=== PATIENT | female | born 1940 | race Caucasian/White ===

== ENCOUNTER → 2016-10-13 | Outpatient (CLI) | payer MEDICARE, BC | LOC: LAB 10:40 | DX: E11.9 Type 2 diabetes mellitus without complications (principal); I10 Essential (primary) hypertension ==

== ENCOUNTER → 2017-04-19 | Outpatient (CLI) | payer MEDICARE, BC ==
[2017-04-19 13:29] LABS: BASO # 0.1 (0.02-0.10); EOS # 0.3 (0.04-0.40); HEMATOCRIT 40.5 % (37.0-47.0); HEMOGLOBIN 13.5 g/dL (12.5-16.0); MEAN CELL VOLUME 89 fl (78-100); MEAN CORPUSCULAR HEMOGLOBIN 30 pg (27-31); MEAN CORPUSCULAR HGB CONC 33 g/dL (33-37); MEAN PLATELET VOLUME 10.8 fl (7.4-10.4); MONO # 0.7 (0.20-0.80); NEU # 4.9 (1.40-6.50); PLATELET COUNT 249 K/mm3 (130-400); RED BLOOD COUNT 4.54 M/mm3 (4.10-5.30); RED CELL DISTRIBUTION WIDTH 12.6 % (11.5-14.5)
[2017-04-19 14:48] LABS: ALBUMIN 4.1 g/dL (3.5-5.0); BUN/CREATININE RATIO 20.5 (6.0-26.0); CALCIUM 10.2 mg/dL (8.4-10.2); POTASSIUM 3.9 mmol/L (3.6-5.0); TOTAL BILIRUBIN 0.5 mg/dL (0.2-1.3); TOTAL PROTEIN 7.1 g/dL (6.3-8.2)
== END ==
LOC: LAB 11:02
PROVIDERS: Nurse Practitioner Family
DX: I10 Essential (primary) hypertension (principal); E11.9 Type 2 diabetes mellitus without complications; E78.2 Mixed hyperlipidemia

== ENCOUNTER → 2017-04-25 | Outpatient (CLI) | payer MEDICARE, BC | LOC: RAD 12:00 → VAS 16:20 | DX: R01.1 Cardiac murmur, unspecified (principal); I10 Essential (primary) hypertension ==

== ENCOUNTER → 2017-04-26 | Outpatient (CLI) | payer MEDICARE, BC | LOC: MAMMO 09:50 | DX: Z12.31 Encounter for screening mammogram for malignant neoplasm of breast (principal) | CPT/HCPCS: G0202 ==

== ENCOUNTER → 2017-05-01 | Day surgery (SDC) | payer MEDICARE, BC | LOC: MSO 11:02 | DX: K22.70 Barrett's esophagus without dysplasia (principal); K21.9 Gastro-esophageal reflux disease without esophagitis; K20.9 Esophagitis, unspecified; I10 Essential (primary) hypertension; E78.00 Pure hypercholesterolemia, unspecified; F17.210 Nicotine dependence, cigarettes, uncomplicated; H91.93 Unspecified hearing loss, bilateral | CPT/HCPCS: 00740; A4649; J7030 ==

== ENCOUNTER → 2017-10-17 | Outpatient (CLI) | payer MEDICARE, BC ==
[2017-07-29 10:51] VITALS: BP 137/63
[~2017-10-17] MED LIST: ACETAMINOPHEN-O1 TAB PO; CEFDINIR300 MG PO; COMBIVENT RESPI1 SPR IH; D-1000 185 MG-11 TAB; LOSARTAN POTASS50 M1 PO; NORVASC 5MG5 MG/TAB PO; PREVACID15 M1 PO; SIMVASTATIN20 M1 PO; VITAMIN C PURE500 M1
== END ==
LOC: LAB 11:49
DX: E11.9 Type 2 diabetes mellitus without complications (principal)

== ENCOUNTER 2017-11-21 13:00 | Outpatient (RCR) | payer MEDICARE, BC ==
[2017-07-29 10:51] VITALS: BP 137/63
== END 2017-11-21 13:30 | disposition home or self-care (01) ==
LOC: PT 13:00
DX: S29.012D Strain of muscle and tendon of back wall of thorax, subsequent encounter (principal)

== ENCOUNTER → 2018-03-28 | Outpatient (CLI) | payer MEDICARE, BC ==
[2017-07-29 10:51] VITALS: BP 137/63
== END ==
LOC: LAB 09:46
DX: R30.0 Dysuria (principal); R35.0 Frequency of micturition; K04.7 Periapical abscess without sinus; K08.89 Other specified disorders of teeth and supporting structures

== ENCOUNTER → 2018-05-14 | Outpatient (CLI) | payer MEDICARE, BC ==
[2017-07-29 10:51] VITALS: BP 137/63
[2018-05-14 10:26] LABS: BASO # 0.1 (0.02-0.10); EOS # 0.3 (0.04-0.40); EOS % 4.7 % (1.0-5.0); HEMATOCRIT 39.6 % (37.0-47.0); HEMOGLOBIN 13.1 g/dL (12.5-16.0); LYMPH# 1.7 (1.50-4.00); MEAN CELL VOLUME 90 fl (78-100); MEAN CORPUSCULAR HEMOGLOBIN 30 pg (27-31); MEAN CORPUSCULAR HGB CONC 33 g/dL (33-37); MEAN PLATELET VOLUME 10.1 fl (7.4-10.4); MONO # 0.7 (0.20-0.80); NEU # 3.5 (1.40-6.50); PLATELET COUNT 256 K/mm3 (130-400); RED CELL DISTRIBUTION WIDTH 12.2 % (11.5-14.5); WHITE BLOOD COUNT 6.4 K/mm3 (4.8-10.8)
[2018-05-14 10:41] LABS: ALBUMIN 4.6 g/dL (3.5-5.0); CALCIUM 9.7 mg/dL (8.4-10.2); POTASSIUM 4.1 mmol/L (3.6-5.0); TOTAL BILIRUBIN 0.7 mg/dL (0.2-1.3); TOTAL PROTEIN 7.2 g/dL (6.3-8.2)
== END ==
LOC: LAB 09:53
PROVIDERS: Physician Assistant
DX: Z23 Encounter for immunization (principal); Z00.00 Encounter for general adult medical examination without abnormal findings; E11.9 Type 2 diabetes mellitus without complications; R53.83 Other fatigue; K21.9 Gastro-esophageal reflux disease without esophagitis; E78.5 Hyperlipidemia, unspecified; K22.70 Barrett's esophagus without dysplasia; I10 Essential (primary) hypertension

== ENCOUNTER → 2018-05-14 | Outpatient (CLI) | payer MEDICARE, BC ==
[2017-07-29 10:51] VITALS: BP 137/63
== END ==
LOC: MAMMO 09:52
DX: Z12.31 Encounter for screening mammogram for malignant neoplasm of breast (principal); Z00.00 Encounter for general adult medical examination without abnormal findings; Z23 Encounter for immunization; R53.83 Other fatigue; K21.9 Gastro-esophageal reflux disease without esophagitis; E78.5 Hyperlipidemia, unspecified; K22.70 Barrett's esophagus without dysplasia; I10 Essential (primary) hypertension; E11.9 Type 2 diabetes mellitus without complications

== ENCOUNTER → 2018-09-24 | Outpatient (CLI) | payer MEDICARE, BC ==
[2017-07-29 10:51] VITALS: BP 137/63
== END ==
LOC: RAD 10:50
DX: M19.071 Primary osteoarthritis, right ankle and foot (principal); M79.89 Other specified soft tissue disorders; I10 Essential (primary) hypertension; J30.2 Other seasonal allergic rhinitis; J30.9 Allergic rhinitis, unspecified

== ENCOUNTER → 2019-05-02 | Outpatient (CLI) | payer MEDICARE, BC ==
[2017-07-29 10:51] VITALS: BP 137/63
[2019-05-02 11:28] LABS: BASO # 0.1 (0.02-0.10); EOS # 0.2 (0.04-0.40); EOS % 3.1 % (1.0-5.0); HEMATOCRIT 41.2 % (37.0-47.0); HEMOGLOBIN 13.3 g/dL (12.5-16.0); LYMPH# 1.9 (1.50-4.00); MEAN CELL VOLUME 89 fl (78-100); MEAN CORPUSCULAR HEMOGLOBIN 29 pg (27-31); MEAN CORPUSCULAR HGB CONC 32 g/dL (33-37); MEAN PLATELET VOLUME 10.7 fl (7.4-10.4); MONO # 0.8 (0.20-0.80); NEU # 4.1 (1.40-6.50); PLATELET COUNT 259 K/mm3 (130-400); RED BLOOD COUNT 4.65 M/mm3 (4.10-5.30); RED CELL DISTRIBUTION WIDTH 12.6 % (11.5-14.5); WHITE BLOOD COUNT 7.2 K/mm3 (4.8-10.8)
[2019-05-02 11:30] LABS: ALBUMIN 4.4 g/dL (3.4-4.8); POTASSIUM 4.2 mmol/L (3.5-5.1)
[2019-05-02 11:33] LABS: TOTAL PROTEIN 7.2 g/dL (6.2-8.1)
[2019-05-02 11:34] LABS: TOTAL BILIRUBIN 0.5 mg/dL (0.2-1.2)
== END ==
LOC: LAB 10:53
PROVIDERS: Physician Assistant
DX: Z00.00 Encounter for general adult medical examination without abnormal findings (principal); Z12.39 Encounter for other screening for malignant neoplasm of breast; Z13.220 Encounter for screening for lipoid disorders; Z13.29 Encounter for screening for other suspected endocrine disorder; E11.9 Type 2 diabetes mellitus without complications; K21.9 Gastro-esophageal reflux disease without esophagitis; I10 Essential (primary) hypertension; R25.2 Cramp and spasm; Z72.0 Tobacco use

== ENCOUNTER → 2019-05-28 | Outpatient (CLI) | payer MEDICARE, BC ==
[2017-07-29 10:51] VITALS: BP 137/63
== END ==
LOC: MAMMO 10:38
DX: Z00.00 Encounter for general adult medical examination without abnormal findings (principal); Z12.31 Encounter for screening mammogram for malignant neoplasm of breast; Z13.220 Encounter for screening for lipoid disorders; Z13.29 Encounter for screening for other suspected endocrine disorder; Z72.0 Tobacco use; K21.9 Gastro-esophageal reflux disease without esophagitis; E11.9 Type 2 diabetes mellitus without complications; I10 Essential (primary) hypertension; R25.2 Cramp and spasm

== ENCOUNTER → 2019-07-31 | Day surgery (SDC) | payer MEDICARE, BC ==
[2017-07-29 10:51] VITALS: BP 137/63
== END ==
LOC: MSO 07-03 08:22
DX: K22.70 Barrett's esophagus without dysplasia (principal); K21.9 Gastro-esophageal reflux disease without esophagitis; K92.1 Melena; K29.70 Gastritis, unspecified, without bleeding; F17.210 Nicotine dependence, cigarettes, uncomplicated; I10 Essential (primary) hypertension
CPT/HCPCS: 00731; J2704; J7030

== ENCOUNTER 2019-08-15 11:43 | Emergency (ER) | payer MEDICARE, BC ==
[~2019-08-15] VITALS: Ht 160 cm; Wt 77.3 kg
[2019-08-15] MEDS ORDERED: SIMVASTATIN20 M1 PO (12:33)
[2019-08-15] MEDS ORDERED: NORVASC 10MG10 MG PO (12:34)
[2019-08-15] MEDS ORDERED: CRANBERRY500 M3 PO (12:37)
[2019-08-15] MEDS ORDERED: CALCIUM 250+D1 EACH PO (12:37)
[2019-08-15 12:46] LABS: ALBUMIN 4.7 g/dL (3.4-4.8); POTASSIUM 3.5 mmol/L (3.5-5.1)
[2019-08-15 12:48] LABS: CALCIUM 9.8 mg/dL (8.3-10.5)
[2019-08-15 12:49] LABS: TOTAL PROTEIN 7.5 g/dL (6.2-8.1)
[2019-08-15 12:51] LABS: TOTAL BILIRUBIN 0.4 mg/dL (0.2-1.2)
[2019-08-15 13:02] LABS: HEMATOCRIT 42.5 % (37.0-47.0); MEAN CELL VOLUME 89 fl (78-100); MEAN CORPUSCULAR HEMOGLOBIN 29 pg (27-31); MEAN CORPUSCULAR HGB CONC 33 g/dL (33-37); PLATELET COUNT 268 K/mm3 (130-400); RED BLOOD COUNT 4.78 M/mm3 (4.10-5.30); RED CELL DISTRIBUTION WIDTH 13.2 % (11.5-14.5); WHITE BLOOD COUNT 8.6 K/mm3 (4.8-10.8)
[2019-08-15 13:12] LABS: LYMPHOCYTE 15 % (20-51); MONOCYTE 9 % (3-10); NEUTROPHILS 75 % (42-75)
[2019-08-15] MEDS ORDERED: ZOFRAN ODT4 MG PO (13:50)
[2019-08-15 14:19] VITALS: BP 130/60
[2019-08-15 14:48] LABS: URINE APPEARANCE HAZY; URINE BILIRUBIN NEGATIVE (NEGATIVE); URINE BLOOD TRACE (NEGATIVE); URINE COLOR YELLOW; URINE GLUCOSE NEGATIVE (NEGATIVE); URINE KETONE NEGATIVE (NEGATIVE); URINE LEUKOCYTE ESTERASE 1+ (NEGATIVE); URINE NITRATE NEGATIVE (NEGATIVE); URINE PROTEIN(semi-quant) 1+ mg/dL (NEGATIVE); URINE UROBILINOGEN NORMAL (NORMAL)
== END 2019-08-15 14:24 | disposition home or self-care (01) ==
LOC: ED 11:43
PROVIDERS: Nurse Practitioner Primary Care
DX: K52.9 Noninfective gastroenteritis and colitis, unspecified (principal); I10 Essential (primary) hypertension; K21.9 Gastro-esophageal reflux disease without esophagitis; E78.5 Hyperlipidemia, unspecified; F17.210 Nicotine dependence, cigarettes, uncomplicated; Z90.49 Acquired absence of other specified parts of digestive tract
CPT/HCPCS: J7030

== ENCOUNTER → 2020-05-25 | Outpatient (CLI) | payer MEDICARE, BC ==
[~2020-05-25] MED LIST changes: +CALCIUM 250+D1 EACH PO; +CRANBERRY500 M3 PO; +NORVASC 10MG10 MG PO; +ZOFRAN ODT4 MG PO
[2020-05-25 11:23] LABS: BASO # 0.1 (0.02-0.10); EOS # 0.2 (0.04-0.40); EOS % 3.6 % (1.0-5.0); HEMATOCRIT 40.5 % (37.0-47.0); HEMOGLOBIN 13.4 g/dL (12.5-16.0); LYMPH# 1.6 (1.50-4.00); MEAN CELL VOLUME 88 fl (78-100); MEAN CORPUSCULAR HEMOGLOBIN 29 pg (27-31); MEAN CORPUSCULAR HGB CONC 33 g/dL (33-37); MEAN PLATELET VOLUME 10.4 fl (7.4-10.4); MONO # 0.7 (0.20-0.80); NEU # 3.6 (1.40-6.50); PLATELET COUNT 225 K/mm3 (130-400); RED BLOOD COUNT 4.61 M/mm3 (4.10-5.30); RED CELL DISTRIBUTION WIDTH 12.7 % (11.5-14.5); WHITE BLOOD COUNT 6.1 K/mm3 (4.8-10.8)
[2020-05-25 11:33] LABS: ALBUMIN 4.3 g/dL (3.4-4.8); POTASSIUM 3.9 mmol/L (3.5-5.1)
[2020-05-25 11:34] LABS: CALCIUM 9.7 mg/dL (8.3-10.5)
[2020-05-25 11:36] LABS: TOTAL PROTEIN 6.9 g/dL (6.2-8.1)
[2020-05-25 11:38] LABS: TOTAL BILIRUBIN 0.5 mg/dL (0.2-1.2)
== END ==
LOC: LAB 11:10
PROVIDERS: Physician Assistant
DX: Z00.00 Encounter for general adult medical examination without abnormal findings (principal); E11.65 Type 2 diabetes mellitus with hyperglycemia; Z13.6 Encounter for screening for cardiovascular disorders

== ENCOUNTER → 2020-06-01 | Outpatient (CLI) | payer MEDICARE, BC | LOC: MAMMO 09:50 | DX: Z12.31 Encounter for screening mammogram for malignant neoplasm of breast (principal); Z98.82 Breast implant status ==

== ENCOUNTER → 2021-05-25 | Outpatient (CLI) | payer MEDICARE, BC ==
[2021-05-25 11:36] LABS: BASO # 0.08 K/mm3 (0.02-0.10); EOS # 0.39 K/mm3 (0.04-0.40); EOS % 4.8 % (1.0-5.0); HEMATOCRIT 39.8 % (37.0-47.0); HEMOGLOBIN 12.8 g/dL (12.5-16.0); LYMPH# 1.48 K/mm3 (1.50-4.00); MEAN CELL VOLUME 92 fl (78-100); MEAN CORPUSCULAR HEMOGLOBIN 29 pg (27-31); MEAN CORPUSCULAR HGB CONC 32 g/dL (33-37); MONO # 0.85 K/mm3 (0.20-0.80); NEU # 5.22 K/mm3 (1.40-6.50); PLATELET COUNT 245 K/mm3 (130-400); RED BLOOD COUNT 4.35 M/mm3 (4.10-5.30); RED CELL DISTRIBUTION WIDTH 12.3 % (11.5-14.5); WHITE BLOOD COUNT 8.1 K/mm3 (4.8-10.8)
[2021-05-25 11:43] LABS: ALBUMIN 4.3 g/dL (3.4-4.8); POTASSIUM 4.3 mmol/L (3.5-5.1)
[2021-05-25 11:44] LABS: CALCIUM 9.9 mg/dL (8.3-10.5)
[2021-05-25 11:46] LABS: TOTAL PROTEIN 7.4 g/dL (6.2-8.1)
[2021-05-25 11:48] LABS: TOTAL BILIRUBIN 0.6 mg/dL (0.2-1.2)
[2021-05-26 11:14] LABS: ANA SCREEN with REFLEX Negative (Negative)
== END ==
LOC: LAB 11:06
PROVIDERS: Physician Assistant
DX: Z13.1 Encounter for screening for diabetes mellitus (principal); E78.2 Mixed hyperlipidemia; M25.551 Pain in right hip; M19.011 Primary osteoarthritis, right shoulder; M19.071 Primary osteoarthritis, right ankle and foot; M19.072 Primary osteoarthritis, left ankle and foot

== ENCOUNTER → 2021-06-14 | Outpatient (CLI) | payer MEDICARE, BC | LOC: MAMMO 10:00 | DX: Z12.31 Encounter for screening mammogram for malignant neoplasm of breast (principal) ==

== ENCOUNTER → 2021-09-29 | Outpatient (CLI) | payer MEDICARE, BC | LOC: RAD 11:19 | DX: M19.071 Primary osteoarthritis, right ankle and foot (principal); S92.511A Displaced fracture of proximal phalanx of right lesser toe(s), initial encounter for closed fracture ==

== ENCOUNTER → 2022-03-02 | Outpatient (CLI) | payer MEDICARE, BC | LOC: LAB 16:15 | DX: N39.0 Urinary tract infection, site not specified (principal) ==

== ENCOUNTER → 2023-06-27 | Outpatient (CLI) | payer MEDICARE, BC | LOC: RAD 13:31 → MAMMO 14:00 | DX: Z13.820 Encounter for screening for osteoporosis (principal); M85.852 Other specified disorders of bone density and structure, left thigh; M85.851 Other specified disorders of bone density and structure, right thigh ==

== ENCOUNTER → 2023-08-02 | Outpatient (CLI) | payer MEDICARE, BC ==
[2023-08-02 13:59] LABS: BASO # 0.05 K/mm3 (0.02-0.10); EOS # 0.31 K/mm3 (0.04-0.40); EOS % 3.7 % (1.0-5.0); HEMATOCRIT 41.4 % (37.0-47.0); HEMOGLOBIN 13.6 g/dL (12.5-16.0); LYMPH# 1.96 K/mm3 (1.50-4.00); MEAN CELL VOLUME 90 fl (78-100); MEAN CORPUSCULAR HEMOGLOBIN 30 pg (27-31); MEAN CORPUSCULAR HGB CONC 33 g/dL (33-37); MEAN PLATELET VOLUME 10.2 fl (7.4-10.4); MONO # 0.68 K/mm3 (0.20-0.80); NEU # 5.25 K/mm3 (1.40-6.50); PLATELET COUNT 225 K/mm3 (130-400); WHITE BLOOD COUNT 8.3 K/mm3 (4.8-10.8)
[2023-08-02 14:07] LABS: ALBUMIN 4.4 g/dL (3.4-4.8)
[2023-08-02 14:09] LABS: TOTAL PROTEIN 6.9 g/dL (6.2-8.1)
[2023-08-02 14:11] LABS: TOTAL BILIRUBIN 0.5 mg/dL (0.2-1.2)
== END ==
LOC: LAB 13:47
PROVIDERS: Physician Assistant
DX: Z13.29 Encounter for screening for other suspected endocrine disorder (principal); I10 Essential (primary) hypertension; E78.2 Mixed hyperlipidemia; E11.9 Type 2 diabetes mellitus without complications; K90.9 Intestinal malabsorption, unspecified

== ENCOUNTER → 2024-08-20 | Outpatient (CLI) | payer MEDICARE, BC | LOC: MAMMO 13:50 | DX: Z12.31 Encounter for screening mammogram for malignant neoplasm of breast (principal) ==